=== PATIENT | male | born 1970 | race Two or more races ===

== ENCOUNTER 2020-10-29 11:33 | Inpatient (IN) | payer MEDICAID, OTHER ==
[~2020-10-29] VITALS: Ht 185.4 cm; Wt 97.0 kg
[2020-10-29 12:10] LABS: Basophils # (auto) 0.1 10 ^3/uL (0-0.2); Eosinophils # (auto) 0.2 10 ^3/uL (0-0.8); Eosinophils % (auto) 2.7 % (0.0-7.0); Hematocrit 46.2 % (41.0-53.0); Hemoglobin 15.7 g/dL (13.5-17.5); Lymphocytes # (auto) 1.6 10 ^3/uL (0.4-5.4); Mean Corpuscular Hemoglobin 32.4 pg (28.0-32.0); Mean Corpuscular Hgb Conc. 34.1 g/dL (32.0-36.0); Mean Corpuscular Volume 94.9 fL (80.0-100.0); Monocytes # (auto) 0.5 10 ^3/uL (0-1.3); Monocytes % (auto) 7.7 % (0.0-12.0); Neutrophils # (auto) 4.4 10 ^3/uL (1.6-8.6); Neutrophils % (auto) 64.6 % (37.0-80.0); Nucleated Red Blood Cells % 0.1 %; Red Blood Cells 4.87 10^6/uL (4.5-5.90); White Blood Cell 6.8 10^3/uL (4.4-10.8)
[2020-10-29 12:23] LABS: Alanine Aminotransferase 14 U/L (16-61); Albumin 3.3 g/dL (3.4-5.0); Anion Gap 8 (5-15); Blood Alcohol < 3.0 mg/dL (0-5); Blood Urea Nitrogen 12 mg/dL (7-18); Calcium 7.6 mg/dL (8.5-10.1); Carbon Dioxide 21 mmol/L (21-32); Chloride 116 mmol/L (98-107); Glucose 82 mg/dL (74-106); Potassium 3.7 mmol/L (3.5-5.1); Sodium 145 mmol/L (136-145)
[2020-10-29 12:26] LABS: Alkaline Phosphatase 129 U/L (45-117); Aspartate Aminotransferase 26 U/L (15-37); BUN/Creatinine Ratio 15.2; Bilirubin, Total 0.3 mg/dL (0.2-1.0); GFR African American 134 mL/min; GFR Non-African American 111 mL/min; Total Protein 6.7 g/dL (6.4-8.2)
[2020-10-29 13:12] LABS: Carbamazepine (Tegretol) < 2.0 ug/mL (4-12)
[2020-10-29] MEDS ORDERED: carBAMazepine 200 MG TAB PO ONE (13:45)
[2020-10-29] MEDS ORDERED: PHENYTOIN SODIUM 100 MG CAP PO ONE (13:45)
[2020-10-29] MEDS ORDERED: PHENYTOIN IV DILANTIN 500 MG in SODIUM CHL 0.9% 100 ML IV ONE (14:00)
[2020-10-29] MEDS ORDERED: LORazepam 2MG/ML-1ML VIAL ONE (16:50)
[2020-10-29] MEDS ORDERED: DOCUSATE CALCIUM 240 MG CAP PO PRN (17:00)
[2020-10-29] MEDS ORDERED: LORazepam 0.5 MG TAB PO PRN (17:00)
[2020-10-29] MEDS ORDERED: LORazepam 2MG/ML-1ML VIAL IV ONE (17:00)
[2020-10-29] MEDS ORDERED: TETANUS-DIPTH-ACEL PERTUSSIS 0.5ML SYR Tdap IM ONE (17:00)
[2020-10-29] MEDS ORDERED: LABETALOL HCL 5 MG/ML 4ML SYRINGE IV PRN (17:00)
[2020-10-29] MEDS ORDERED: ONDANSETRON HCL 4 MG/2 ML VIAL IV PRN (17:00)
[2020-10-29] MEDS ORDERED: MORPHINE SULFATE INJECTION 2 MG/ML SYRG IV PRN (17:00)
[2020-10-29] MEDS ORDERED: NITROGLYCERIN 0.4 MG SL TAB SL PRN (17:00)
[2020-10-29] MEDS ORDERED: MORPHINE SULFATE 4 MG/ML SYR/VIAL IV PRN (17:00)
[2020-10-29 20:00] VITALS: BP 134/82
[2020-10-29] MEDS: ACETAMINOPHEN 500 MG TAB PO PRN (20:13)
[2020-10-29 21:00] VITALS: BP 126/78
[2020-10-29] MEDS: CALCIUM CARB 500 MG CHEW TAB PO SCH (21:33)
[2020-10-29 22:08] VITALS: BP 134/82
[2020-10-30] VITALS (8 sets, daily range): BP systolic 96–118; BP diastolic 54–81
[2020-10-30 05:27] LABS: Basophils # (auto) 0 10 ^3/uL (0-0.2); Basophils % (auto) 0.5 % (0.0-2.0); Eosinophils # (auto) 0.2 10 ^3/uL (0-0.8); Eosinophils % (auto) 2.9 % (0.0-7.0); Hematocrit 42.8 % (41.0-53.0); Hemoglobin 15.3 g/dL (13.5-17.5); Lymphocytes # (auto) 1.6 10 ^3/uL (0.4-5.4); Lymphocytes % (auto) 18.8 % (10.0-50.0); Mean Corpuscular Hemoglobin 33.4 pg (28.0-32.0); Mean Corpuscular Hgb Conc. 35.8 g/dL (32.0-36.0); Mean Corpuscular Volume 93.3 fL (80.0-100.0); Monocytes # (auto) 0.6 10 ^3/uL (0-1.3); Monocytes % (auto) 7.6 % (0.0-12.0); Neutrophils % (auto) 70.2 % (37.0-80.0); Nucleated Red Blood Cells % 0.1 %; Red Blood Cells 4.59 10^6/uL (4.5-5.90); Red Cell Distribution Width 12.8 % (11.8-14.3); White Blood Cell 8.5 10^3/uL (4.4-10.8)
[2020-10-30 05:43] LABS: INR 1.08 (0.9-1.15)
[2020-10-30 05:50] LABS: Potassium 3.6 mmol/L (3.5-5.1)
[2020-10-30 05:59] LABS: Albumin 3.5 g/dL (3.4-5.0); BUN/Creatinine Ratio 15.2; Bilirubin, Total 0.5 mg/dL (0.2-1.0); Calcium 8.3 mg/dL (8.5-10.1); Magnesium 2.3 mg/dL (1.6-2.6); Total Protein 6.7 g/dL (6.4-8.2)
[2020-10-30 06:00] LABS: Phenytoin (Dilantin) 6.3 ug/mL (10-20)
[2020-10-30 06:13] LABS: Carbamazepine (Tegretol) < 2.0 ug/mL (4-12)
[2020-10-30 07:53] LABS: Urine Bacteria FEW /hpf (None Seen); Urine Blood Negative /uL (Negative); Urine Hyaline Cast FEW /lpf (0 - 2); Urine Mucus FEW (None Seen); Urine Specific Gravity 1.028 (1.001-1.035); Urine WBC 1 /hpf (0 - 3)
[2020-10-30] MEDS: PANTOPRAZOLE 40 MG TAB PO SCH (09:25)
[2020-10-30] MEDS: CALCIUM CARB 500 MG CHEW TAB PO SCH (09:25)
[2020-10-30] MEDS: ACETAMINOPHEN 500 MG TAB PO PRN ×2 (09:25→20:06)
[2020-10-30] MEDS: ENOXAPARIN SOD 40 MG/0.4 ML SYRINGE SC SCH (09:26)
[2020-10-30] MEDS ORDERED: LORazepam 2MG/ML-1ML VIAL IV PRN (12:15)
[2020-10-30] MEDS ORDERED: MORPHINE SULFATE INJECTION 2 MG/ML SYRG IV PRN (14:00)
[2020-10-30] MEDS: levETIRAcetam 500 MG TAB PO SCH (21:06)
[2020-10-30] MEDS: PHENYTOIN SODIUM 100 MG CAP PO SCH (21:06)
[2020-10-31 05:00] VITALS: BP 105/63
[2020-10-31 05:17] LABS: Basophils # (auto) 0 10 ^3/uL (0-0.2); Basophils % (auto) 0.4 % (0.0-2.0); Eosinophils # (auto) 0.3 10 ^3/uL (0-0.8); Eosinophils % (auto) 4.6 % (0.0-7.0); Hematocrit 43.5 % (41.0-53.0); Hemoglobin 15.1 g/dL (13.5-17.5); Lymphocytes % (auto) 27.9 % (10.0-50.0); Mean Corpuscular Hemoglobin 32.6 pg (28.0-32.0); Mean Corpuscular Hgb Conc. 34.8 g/dL (32.0-36.0); Mean Corpuscular Volume 93.8 fL (80.0-100.0); Monocytes # (auto) 0.6 10 ^3/uL (0-1.3); Monocytes % (auto) 8.3 % (0.0-12.0); Neutrophils # (auto) 4.2 10 ^3/uL (1.6-8.6); Neutrophils % (auto) 58.8 % (37.0-80.0); Nucleated Red Blood Cells % 0.1 %; Red Blood Cells 4.64 10^6/uL (4.5-5.90); White Blood Cell 7.2 10^3/uL (4.4-10.8)
[2020-10-31 05:41] LABS: Potassium 3.7 mmol/L (3.5-5.1)
[2020-10-31 05:51] LABS: BUN/Creatinine Ratio 20.6; Calcium 8.2 mg/dL (8.5-10.1); Magnesium 2.2 mg/dL (1.6-2.6)
[2020-10-31] MEDS ORDERED: PHE100C PO (08:52)
[2020-10-31] MEDS ORDERED: CARB100S GT (08:52)
[2020-10-31 09:00] VITALS: BP 108/75
[2020-10-31] MEDS: levETIRAcetam 500 MG TAB PO SCH ×2 (10:00→21:07)
[2020-10-31] MEDS: PANTOPRAZOLE 40 MG TAB PO SCH (10:00)
[2020-10-31] MEDS: PHENYTOIN SODIUM 100 MG CAP PO SCH ×2 (10:00→21:07)
[2020-10-31] MEDS: ENOXAPARIN SOD 40 MG/0.4 ML SYRINGE SC SCH (10:01)
[2020-10-31] MEDS ORDERED: MUPIROCIN 2% OINT 15gm or 22gm TOP ONE (13:00)
[2020-10-31] MEDS ORDERED: MUPIROCIN 2% OINT 15gm or 22gm TOP SCH (13:04)
[2020-10-31 13:28] VITALS: BP 103/71
[2020-10-31 17:00] VITALS: BP 103/69
[2020-10-31] MEDS: MUPIROCIN 2% OINT 15gm or 22gm TOP SCH ×2 (18:26→21:08)
[2020-10-31 21:42] LABS: Alcohol, Urine < 3.0 mg/dL (0-10); Amphetamine Screen, Urine NEGATIVE (NEGATIVE); Barbiturate Scree,Urine NEGATIVE (NEGATIVE); Benzodiazephine Screen, Urine NEGATIVE (NEGATIVE); Cannabinoid Screen, Urine NEGATIVE (NEGATIVE); Cocaine Screen, Urine NEGATIVE (NEGATIVE); Opiate Scree,Urine NEGATIVE (NEGATIVE); Phencyclidine Screen, Urine NEGATIVE (NEGATIVE)
[2020-10-31 22:00] VITALS: BP 104/72
[2020-11-01 05:00] VITALS: BP 109/65
[2020-11-01] MEDS ORDERED: PHE100C PO (08:12)
[2020-11-01] MEDS ORDERED: KEP500T PO (08:12)
[2020-11-01 08:22] VITALS: BP 102/67
[2020-11-01] MEDS: PHENYTOIN SODIUM 100 MG CAP PO SCH (09:33)
[2020-11-01] MEDS: levETIRAcetam 500 MG TAB PO SCH (09:33)
[2020-11-01] MEDS: PANTOPRAZOLE 40 MG TAB PO SCH (09:34)
[2020-11-01] MEDS: MUPIROCIN 2% OINT 15gm or 22gm TOP SCH (09:34)
[2020-11-01] MEDS: ENOXAPARIN SOD 40 MG/0.4 ML SYRINGE SC SCH (09:34)
[2020-11-01 12:47] VITALS: BP 107/74
== END 2020-11-01 15:48 | disposition home or self-care (01) | DRG 53 ==
LOC: ER 11:33 → EDBD 11:33 → TELE 16:48 → DOU IN ICU 19:56 → TELE-CENTR 10-30 17:22
PROVIDERS: ADMIT Family Medicine; ATTEND Internal Medicine
DX: G40.909 Epilepsy, unspecified, not intractable, without status epilepticus (principal); E83.51 Hypocalcemia; S02.2XXA Fracture of nasal bones, initial encounter for closed fracture; S00.83XA Contusion of other part of head, initial encounter; B95.62 Methicillin resistant Staphylococcus aureus infection as the cause of diseases classified elsewhere; S82.032A Displaced transverse fracture of left patella, initial encounter for closed fracture; F10.10 Alcohol abuse, uncomplicated; F17.210 Nicotine dependence, cigarettes, uncomplicated; Z79.899 Other long term (current) drug therapy; Z91.14 Patient's other noncompliance with medication regimen; Z20.822 Contact with and (suspected) exposure to COVID-19; F19.10 Other psychoactive substance abuse, uncomplicated
CPT/HCPCS: 36415; 70450; 70486; 73560; 80048; 80053; 80156; 80185; 80307; 80320; 81001; 83735; 84443; 85025; 85610; 87081; 87426; 90471; 90715; 93005; 96365; 96375; 99291; G0378; J7060